=== PATIENT | female | born 1965 | race Caucasian/White ===

== ENCOUNTER → 2021-07-25 16:52 | Outpatient (CLI) | payer OTHER, SELFPAY | PROVIDERS: PCP Nurse Practitioner Family; Visit Provider Nurse Practitioner | DX: Z20.822 Contact with and (suspected) exposure to COVID-19 (principal) | CPT/HCPCS: C9803; U0003; U0005 ==

== ENCOUNTER → 2022-02-05 15:55 | Outpatient (CLI) | payer OTHER, SELFPAY ==
--- NOTE | 2022-02-05 16:03 | XR_ITS ---
FINAL REPORT CLINICAL HISTORY: FROZEN SHOULDER. SHOULDER PAIN, fall 3 months ago FINDINGS: RIGHT SHOULDER Three views demonstrate no acute fracture or dislocation. The visualized joint spaces are normally aligned. The soft tissues are unremarkable. IMPRESSION: No acute process. Reviewed, Interpreted and Dictated by José Luis Luna MD Transcribed by Elaine Garzon Authenticated by José Luis Luna MD on 02/05/2022 04:41:15 PM [facility]
== END ==
PROVIDERS: PCP Family Medicine; Visit Provider Family Medicine
DX: M25.511 Pain in right shoulder (principal)
CPT/HCPCS: 73030